=== PATIENT | male | born 1950 | race Caucasian/White ===

== ENCOUNTER → 2017-08-03 | Outpatient (CLI) | payer OTHER | LOC: FIMAGING 13:28 | PROVIDERS: ATTEND Internal Medicine | DX: I77.1 Stricture of artery (principal) ==

== ENCOUNTER → 2017-09-30 | Outpatient (CLI) | payer OTHER | LOC: BMCIMAGING 11:53 | PROVIDERS: ATTEND Internal Medicine | DX: M25.861 Other specified joint disorders, right knee (principal); M25.862 Other specified joint disorders, left knee; R22.42 Localized swelling, mass and lump, left lower limb; M71.22 Synovial cyst of popliteal space [Baker], left knee ==

== ENCOUNTER → 2017-10-10 | Outpatient (CLI) | payer OTHER | LOC: FIMAGING 08:48 | PROVIDERS: ATTEND Orthopaedic Surgery | DX: M23.322 Other meniscus derangements, posterior horn of medial meniscus, left knee (principal); M23.352 Other meniscus derangements, posterior horn of lateral meniscus, left knee; M94.8X8 Other specified disorders of cartilage, other site; M76.892 Other specified enthesopathies of left lower limb, excluding foot; M25.462 Effusion, left knee ==

== ENCOUNTER → 2017-12-09 | Outpatient (CLI) | payer OTHER ==
[~2017-12-09] MED LIST: IOPAMIDOL (ISOVUE 370) 100 ML BTL IV ONE
== END ==
LOC: FIMAGING 10:54
PROVIDERS: ATTEND Surgery
DX: I77.1 Stricture of artery (principal); Z98.890 Other specified postprocedural states
CPT/HCPCS: 70498; Q9967